=== PATIENT | female | born 1950 | race Caucasian/White ===

== ENCOUNTER → 2016-09-05 | Outpatient (CLI) | payer OTHER ==
--- NOTE | 2016-09-05 09:30 | US ---
Ultrasound of the Abdomen Limited History: R10.13, epigastric abdominal pain. Findings: Gallbladder: No shadowing calculi, wall thickening, or pericholecystic fluid. Common bile duct is 5 m m in diameter which is normal. Liver: Diffusely increased in echogenicity without definite focal lesions and measures 20 cm in lengt h. Renal: Right kidney measures 10.4 x 5.6 x 4.3 cm without hydronephrosis. Pancreas: Homogeneous without peripancreatic fluid. Tail obscured by bowel gas. Aorta: Atherosclerotic abdominal aorta without aneurysm. Impression: 1. No cholelithiasis or biliary ductal dilation. 2. Hepatomegaly and hepatic steatosis without focal lesions. 3. No peripancreatic fluid. 4. Mild atherosclerotic aorta without aneurysm.
== END ==
LOC: FIMAGING 08:26
PROVIDERS: ATTEND Physician Assistant
DX: R16.0 Hepatomegaly, not elsewhere classified (principal); I25.10 Atherosclerotic heart disease of native coronary artery without angina pectoris

== ENCOUNTER → 2017-03-27 | Outpatient (CLI) | payer OTHER | LOC: FIMAGING 08:06 | PROVIDERS: ATTEND Internal Medicine | DX: K76.0 Fatty (change of) liver, not elsewhere classified (principal); R74.0 Nonspecific elevation of levels of transaminase and lactic acid dehydrogenase [LDH] ==

== ENCOUNTER → 2017-12-16 | Outpatient (CLI) | payer OTHER ==
[~2017-12-16] MED LIST: IOPAMIDOL (ISOVUE-300) 100 ML BTL ONE
== END ==
LOC: CIMAGING 15:23
PROVIDERS: ATTEND Physician Assistant
DX: K57.30 Diverticulosis of large intestine without perforation or abscess without bleeding (principal); K57.32 Diverticulitis of large intestine without perforation or abscess without bleeding
CPT/HCPCS: 74177; Q9967; 36415-PO; 80053-PO; 82306-PO; 82607-90; 83735-PO; 85025-PO; 85610-PO

== ENCOUNTER 2017-12-27 11:52 | Emergency (ER) | payer OTHER ==
--- NOTE | 2017-12-27 12:43 | EDPHY ---
H & P Time Seen by Provider: 12/27/17 11:54 HPI/ROS: 67-year-old female presents complaining of left knee pain she states she was scooting from one seat to another seat when she felt a sudden snap in her left lateral knee and since that time has had pain and difficulty bending her left knee. She has a history of pain in that knee and has had a recent MRI approximately 1-2 months ago and is followed by Orthopedics in [place]. She has had arthroscopy on her right knee for a meniscus injury from skiing. She states she is able to bear weight without pain on her left knee however she is not able to bend it. Review of systems As per HPI General no fever no chills no weakness HEENT no eye pain no eye discharge. No eye redness, no sore throat Respiratory no cough, no shortness of breath Cardiac no chest pain, no peripheral edema GI no abdominal pain, no diarrhea, no constipation, no nausea, no vomiting no flank pain, no hematuria, no dysuria Musculoskeletal no myalgias, positive joint pain Heme no easy bruising, no easy bleeding Endo no polyuria, no polydipsia Skin no rashes, no pruritus Neuro no syncope, no dizziness, no headaches Psych is no suicidal ideation, no homicidal ideation Past Medical/Surgical History: Hypertension GERD Prior right knee arthroscopy Social History: Denies alcohol or drug use Smoking Status: Never smoked Physical Exam: 67-year-old female alert and oriented no acute distress nontoxic appearance, afebrile Used crutches to ambulate into the exam room Atraumatic normocephalic Neck no JVD Lungs clear to auscultation no respiratory distress Heart regular rate and rhythm Extremities Right knee no ecchymosis no swelling, extremity with normal color and normal temperature, full range of motion Left knee mild swelling, tenderness to palpation at lateral collateral ligament , and at insertion of ITB Popliteal pulse strong, distal pulses intact, no discoloration of extremity, normal temperature of foot and calf, no calf tenderness Negative anterior posterior drawer, patella intact Limited range of motion of knee, able to flex to approximately 45, able to fully extend Constitutional: Initial Vital Signs Temperature (C) 37.0 C 12/27/17 11:58 Heart Rate 79 12/27/17 11:58 Respiratory Rate 18 12/27/17 11:58 Blood Pressure 126/78 H 12/27/17 11:58 O2 Sat (%) 97 12/27/17 11:58 O2 Delivery Mode Room Air Allergies/Adverse Reactions: No Known Allergies Allergy (Verified 12/27/17 11:56) Home Medications: Medication Instructions Recorded Avapro 12/27/17 Hydrochlorothiazide 12/27/17 Pantoprazole Sodium 12/27/17 Medical Decision Making - Diagnostics Imaging Results: Imaging Impressions Knee X-Ray 12/27/17 12:04 Impression: 1. Chondrocalcinosis left knee joint. This can be seen with CPPD 2. Small effusion suprapatellar bursa. 3. Mild degenerative changes at the patellofemoral joint with marginal osteophytes and joint space narrowing. ED Course/Re-evaluation: Patient seen and evaluated for left knee pain X-ray Chondrocalcinosis No fracture, small suprapatellar effusion Impression Left knee sprain Plan Knee immobilizer Crutches Rest ice elevation Follow up Ortho Differential Diagnosis: Differential diagnosis considered but not limited to: Tib-fib fracture, knee sprain, knee strain, meniscus tear, internal derangement , bursitis Departure - Departure Disposition: Home, Routine, Self-Care Clinical Impression: Left knee sprain Condition: Good Instructions: Knee Sprain (ED) Additional Instructions: Rest, ice , elevation Follow up with orthopedics. Referrals: Erin Guerrier MD [Primary Care Provider] - As per Instructions Addi Greco MD [Medical Doctor] - As per Instructions
[2017-12-27 13:36] VITALS: BP 113/70
== END 2017-12-27 13:36 | disposition home or self-care (01) ==
LOC: CED 11:52
DX: S83.92XA Sprain of unspecified site of left knee, initial encounter (principal); I10 Essential (primary) hypertension; X58.XXXA Exposure to other specified factors, initial encounter
CPT/HCPCS: 73564; 99283; L1830

== ENCOUNTER → 2018-05-20 | Outpatient (CLI) | payer OTHER | LOC: BHFA 08:30 | PROVIDERS: ATTEND Internal Medicine Cardiovascular Disease | DX: R07.9 Chest pain, unspecified (principal); R94.31 Abnormal electrocardiogram [ECG] [EKG]; I11.9 Hypertensive heart disease without heart failure; I43 Cardiomyopathy in diseases classified elsewhere | CPT/HCPCS: 78452; 93017; 93306; A9500 ==

== ENCOUNTER 2018-11-05 07:52 | Day surgery (SDC) | payer OTHER ==
[2018-11-05] MEDS ORDERED: NS 1,000 ML IV ONE (07:56)
[2018-11-05] MEDS ORDERED: FAMOTIDINE 20 MG TAB PO ONE (07:56)
[2018-11-05] MEDS ORDERED: DIAZEPAM 5 MG TAB PO ONE (07:56)
[2018-11-05] MEDS ORDERED: ASPIRIN EC 325 MG TAB PO ONE (07:56)
[2018-11-05] MEDS ORDERED: diphenhydrAMINE 25 MG CAP PO ONE (07:56)
[2018-11-05 08:34] LABS: PLATELET COUNT 283 10^3/uL (150-400)
--- NOTE | 2018-11-05 08:58 | PDPROPOC ---
Sedation Plan of Care Sedation Plan of Care: vital signs stable, mental status noted, patient educated of risks, benefits, alternatives, patient can tolerate sedation ASA Classification: ASA 2 Planned drugs: fentanyl, midazolam Mallampati Score: Class 2 Mallampati Reference Image: Patient passed 3-3-2 rule?: Yes
--- NOTE | 2018-11-05 08:59 | PDHPUP ---
History & Physical Update H&P update statement: This history and physical update is based on an assessment of the patient which was completed after admission or registration (within 24 hours), but prior to the surgery/procedure. H&P update: H&P reviewed & patient examined, no change in patient's condition since H&P completed
[2018-11-05 09:04] LABS: INR 1.04 (0.83-1.16); PROTIME(PATIENT) 13.2 SEC (12.0-15.0)
[2018-11-05] MEDS ORDERED: VERAPAMIL 5 MG/2 ML VIAL ONE (09:05)
[2018-11-05] MEDS ORDERED: HEPARIN 10,000 UNIT/10 ML MDV (1,000 UNIT/ML) ONE (09:05)
[2018-11-05] MEDS ORDERED: fentaNYL 100 MCG/2 ML INJ ONE (09:05)
[2018-11-05] MEDS ORDERED: MIDAZOLAM 2 MG/2 ML VIAL ONE (09:05)
[2018-11-05] MEDS ORDERED: LIDOCAINE 1% 300 MG/30 ML SDV ONE (09:05)
[2018-11-05] MEDS ORDERED: IOPAMIDOL (ISOVUE-370) 150 ML BTL IV ONE (09:05)
--- NOTE | 2018-11-05 11:18 | CPIP ---
[f rep st] INVASIVE CARDIAC PROCEDURE DATE OF PROCEDURE: 11/05/2018 PROCEDURE: 1. Coronary angiography. 2. Left ventriculography. INDICATION: 1. Ongoing symptoms of chest pain. 2. Multiple cardiac risk factors, including age, hypertension, hyperlipidemia, and diabetes. 3. Normal nuclear stress test. ACCESS: Patient was prepped and draped in sterile fashion. 1% lidocaine was used to anesthetize the left radial region. A 5-Russian introducer sheath was placed selectively into the left radial artery via modified Seldinger technique. CORONARY ANGIOGRAPHY: A 6-Russian JR4 was advanced to the right coronary artery and images obtained. The right coronary artery was dominant. The right coronary artery had a proximal 20% stenosis, but was otherwise free of any significant disease. A 5-Russian JL3.5 catheter was advanced to the left ma in coronary artery and images obtained. The left main coronary artery bifurcated into an LAD and cir cumflex coronary arteries. The left main coronary artery appeared normal. The left anterior descend ing coronary artery gave rise to 3 diagonal branches. The left anterior descending coronary artery h ad mild luminal irregularities in the mid vessel. There was no stenosis greater than 15% to 20%. Th e diagonal arteries were free of any significant disease. The circumflex coronary artery is a large vessel, but is nondominant. Circumflex coronary artery gave rise to 3 OM branches. The circumflex c oronary artery and its complement of OM branches appeared normal. LEFT VENTRICULOGRAPHY: A 5-Russian pigtail catheter was advanced in the left ventricle and images obt ained. Left ventricle is normal in size, had normal systolic function. Estimated ejection fraction 65%. COMPLICATIONS: None. CONCLUSIONS: 1. Mild coronary artery disease without flow limitation. 2. Normal left ventricular size and systolic function. 3. Plan is for medical management. /[id number]/MODL
[2018-11-05] MEDS ORDERED: ATROPINE SULFATE 1 MG/10 ML SYR IVP PRN (12:13)
[2018-11-05] MEDS ORDERED: NITROGLYCERIN 0.4 MG BTL SL PRN (12:13)
[2018-11-05] MEDS ORDERED: HYDROCODONE/APAP 5/325 TAB PO PRN (12:13)
[2018-11-05] MEDS ORDERED: ONDANSETRON 4 MG/2 ML VIAL IVP PRN (12:13)
[2018-11-05] MEDS ORDERED: OXYCODONE/APAP 5/325 TAB PO PRN (12:13)
--- NOTE | 2018-11-10 08:36 | CPEKG ---
Test Reason : OPEN Blood Pressure : / mmHG Vent. Rate : 073 BPM Atrial Rate : 076 BPM P-R Int : 145 ms QRS Dur : 091 ms QT Int : 419 ms P-R-T Axes : 061 041 011 degrees QTc Int : 462 ms Sinus rhythm Non specific lateral ST/T changes were noted Confirmed by Bryan Al ([id number] on 11/10/2018 8:36:06 AM Referred By: Guerita Sanatna Confirmed By:Bryan Al
== END 2018-11-05 13:32 | disposition home or self-care (01) ==
LOC: FCATH 07:52
PROVIDERS: ATTEND Internal Medicine Cardiovascular Disease
PROC: B2151ZZ Fluoroscopy of Left Heart using Low Osmolar Contrast (ICD-10-PCS; principal; 2018-11-05)
PROC: 4A023N7 Measurement of Cardiac Sampling and Pressure, Left Heart, Percutaneous Approach (ICD-10-PCS; principal; 2018-11-05)
PROC: B2111ZZ Fluoroscopy of Multiple Coronary Arteries using Low Osmolar Contrast (ICD-10-PCS; principal; 2018-11-05)
DX: R07.9 Chest pain, unspecified (principal); I25.10 Atherosclerotic heart disease of native coronary artery without angina pectoris; I10 Essential (primary) hypertension; E78.5 Hyperlipidemia, unspecified; R94.31 Abnormal electrocardiogram [ECG] [EKG]; R73.03 Prediabetes; K21.9 Gastro-esophageal reflux disease without esophagitis; K22.70 Barrett's esophagus without dysplasia; F41.9 Anxiety disorder, unspecified; Z86.73 Personal history of transient ischemic attack (TIA), and cerebral infarction without residual deficits; Z79.82 Long term (current) use of aspirin; Z79.890 Hormone replacement therapy; Z87.19 Personal history of other diseases of the digestive system; Z86.010 Personal history of colon polyps
CPT/HCPCS: 93458; C1769; J1644; J2250; J3010; Q9967

== ENCOUNTER → 2019-01-26 | Outpatient (CLI) | payer OTHER | LOC: FIMAGING 09:47 ==

== ENCOUNTER → 2019-01-28 | Outpatient (CLI) | payer OTHER | LOC: EMCIMAGING 07:40 ==

== ENCOUNTER → 2019-02-23 | Outpatient (CLI) | payer OTHER | LOC: EMCIMAGING 07:55 ==